=== PATIENT | female | born 1995 | race Caucasian/White ===

== ENCOUNTER 2024-01-15 09:14 | Outpatient (CLI) | payer BC | END 2024-01-15 09:15 | disposition home or self-care (01) | LOC: ULT 09:14 | PROVIDERS: ATTEND Advanced Practice Midwife | DX: R10.10 Upper abdominal pain, unspecified (principal); Z15.09 Genetic susceptibility to other malignant neoplasm | CPT/HCPCS: 76705; 76770 ==